=== PATIENT | male | born 1960 | race Hispanic/Latino ===

== ENCOUNTER 2018-05-30 23:00 | Emergency (ER) | payer SELFPAY ==
[~2018-05-30] VITALS: Ht 167.6 cm; Wt 70.3 kg
== END 2018-05-30 23:25 | disposition home or self-care (01) ==
LOC: ER 23:00
DX: M79.662 Pain in left lower leg (principal); S86.211A Strain of muscle(s) and tendon(s) of anterior muscle group at lower leg level, right leg, initial encounter; S76.111A Strain of right quadriceps muscle, fascia and tendon, initial encounter; X50.9XXA Other and unspecified overexertion or strenuous movements or postures, initial encounter; Y93.E6 Activity, residential relocation; Y92.008 Other place in unspecified non-institutional (private) residence as the place of occurrence of the external cause; I10 Essential (primary) hypertension; E11.9 Type 2 diabetes mellitus without complications
CPT/HCPCS: 99282